=== PATIENT | male | born 1950 | race Caucasian/White ===

== ENCOUNTER 2024-07-16 00:51 | Emergency (ER) | payer MEDICARE, MEDICAID, SELFPAY ==
[2024-07-16 00:55] VITALS: PULSE 0
[2024-07-16 00:58] VITALS: PULSE 0; RESP 15
[2024-07-16 01:00] VITALS: PULSE 0; RESP 21
[2024-07-16 01:06] VITALS: BP 0/0; PULSE 0; RESP 40
[2024-07-16] MEDS: Sodium Bicarb Inj 8.4% SYR 50 ML SYRINGE IV (01:10)
[2024-07-16 01:12] VITALS: BP 46/13; PULSE 0; RESP 27
--- NOTE | 2024-07-16 01:17 | PD.EDCPR ---
ED CPR RME/HPI General Chief Complaint: Cardiac Arrest/CPR Stated Complaint: CODE BLUE Time Seen by Provider: 07/16/24 01:16 Arrival date/time: 07/16/24 00:51 RME / HPI RME / HPI narrative: 0112 Related Data Home Medications ?Medication ?Instructions ?Recorded ?Confirmed acetaminophen 325 mg capsule 325 mg PO Q6HR PRN pain 07/07/18 02/24/24 (Tylenol) bisacodyl 10 mg rectal suppository 10 mg AL QDAY PRN Constipation 07/07/18 02/24/24 (Dulcolax (bisacodyl)) hydrocodone 5 mg-acetaminophen 325 1 tab PO Q6H PRN Pain 07/07/18 02/24/24 mg tablet ([place]) magnesium hydroxide 400 mg/5 mL 30 ml PO QDAY PRN Constipation 07/07/18 02/24/24 oral suspension (Milk of Magnesia) sennosides 8.6 mg tablet (Senna 8.6 mg PO QDAY PRN Constipation 07/07/18 02/24/24 Lax) ferrous sulfate 325 mg (65 mg 325 mg PO BID 06/15/22 02/24/24 iron) tablet levetiracetam 500 mg tablet 500 mg PO BID 06/15/22 02/24/24 ondansetron 4 mg disintegrating 4 mg PO Q6H PRN Nausea 06/15/22 02/24/24 tablet calcitonin (salmon) 200 1 spray intranasal QDAY 02/05/24 02/24/24 unit/actuation nasal spray levetiracetam 500 mg tablet 500 mg PO BID 02/05/24 02/24/24 pantoprazole 40 mg tablet,delayed 40 mg PO QDAY 02/05/24 02/24/24 release tramadol 50 mg tablet 25 mg PO QDAY 02/05/24 02/24/24 Previous Rx's ?Medication ?Instructions ?Recorded pantoprazole 40 mg tablet,delayed 40 mg PO QDAY peptic ulcer disease 02/06/24 release #30 tabs Allergies Allergy/AdvReac Type Severity Reaction Status Date / Time heparin Allergy Verified 02/05/24 16:09 Course Orders Category Date Time Status EPINEPHrine in NS 4 MG IVPB [Adrenalin/NS 4 MG IVPB] Med 07/16/24 00:59 Pending 4 mg in 250 ml IV 0.05 mcg/kg/min Sodium Bicarb 8.4% SYR Med 07/16/24 01:01 Discontinued 100 ml IV .STK-MED ONE Vital Signs Vital signs: Vital Signs Pulse Rate 0 L 07/16/24 00:55 Oxygen Delivery Method Ambu-Bag 07/16/24 00:55 Cardiac Arrest / CPR Medications / Prescriptions Medication administrations:: Medication Administration History Epinephrine/Sodium Chloride (Adrenalin/Ns 4 Mg Ivpb) 4 mg in 250 mls @ 0 mls/hr IV .Q24H PRN; Protocol PRN Reason: per protocol Stop: 08/15/24 00:58 Discontinued Medications Sodium Bicarbonate (Sodium Bicarb Inj 8.4% Syr 50 Ml Syringe) Confirm Administered Dose 100 ml IV .STK-MED ONE Stop: 07/16/24 01:02 Discharge Plan Plan Patient Disposition: Problem List Clinical Impression: Cardiac arrest Patient/Caregiver Discharge Instructions Print Language: [place]
--- NOTE | 2024-07-16 01:43 | ESOP_ITS ---
Procedures Procedure Date / Time 07/16/24 0118 Intubation Indication(s): acute Resp Failure and inability to protect airway Informed consent obtained: procedure done urgently Time out done, and the following verified: correct patient, side and site, procedure, patient position and implants and/or equipment Sedative: none Sedative #2: none Paralytic: other (none) Laryngoscope: fiber optic video scope Assist device used: fiber optic device ET tube size: 7.5 ET tube uncuffed: Yes Tube secured depth (cm): 25 Tube secured location: teeth Tube placement confirmation: visualized tube passing through cords, equal breath sounds bilaterally, no breath sounds over epigastrium and confirmation by capnometry Patient tolerated procedure: no complications EBL(ml): 0 Intubation complications: none Additional comments: Procedure was performed under supervision of Dr. Adam. Lele Amor MD, PGY 2. Disclaimer: This note was dictated by speech recognition. Minor errors in inspector final assembly mechanical may be present due to voice recognition software.
--- NOTE | 2024-07-16 01:56 | PC.NURSE ---
CHARGE NURSE CONTACTED CORONERS SPOKE TO SUSANNA @[phone].
--- NOTE | 2024-07-16 04:37 | PC.NURSE ---
0432 HAVE BEEN UNABLE TO CONTACT FAMILY SINCE DR MITCHELL SPOKE WITH MARLENI ESCAMILLA. PER MARLENI SHE WAS GOING TO GATHER FAMILY TOGETHER AND COME TO HOSPITAL.
--- NOTE | 2024-07-16 04:59 | PC.NURSE ---
0500 [facility] CONTACTED HAVE NOT HEARD FROM FAMILY. [facility] WILL ARRANGE FOR HOME.
--- NOTE | 2024-07-16 06:02 | PC.NURSE ---
HOME HERE TO TAKE PT AT THIS TIME
== END 2024-07-16 06:28 | disposition expired ==
PROVIDERS: Emergency Provider Emergency Medicine
DX: I46.9 Cardiac arrest, cause unspecified (principal)
CPT/HCPCS: 31500; 92950; 99285